=== PATIENT | female | born 1945 | race Caucasian/White ===

== ENCOUNTER → 2023-12-25 09:22 | Outpatient (REF) | payer MEDICARE, OTHER, SELFPAY ==
[2023-12-25 12:55] LABS: Glycohemoglobin (HgbA1c) 6.3 % (4.0-5.6)
[2023-12-25 13:05] LABS: ALT (SGPT) 24 U/L (0-35); AST (SGOT) 25 U/L (14-36); Albumin 4.4 g/dl (3.5-5.0); Alkaline Phosphatase 54 U/L (38-126); Blood Urea Nitrogen 15 mg/dl (7-17); Calcium 9.2 mg/dl (8.4-10.2); Carbon Dioxide 28 mmol/L (22-30); Chloride 99 mmol/L (98-107); Glucose 129 mg/dl (70-99); HDL Cholesterol 58 mg/dl; LDL Cholesterol, Calculated 124 mg/dl; Potassium 4.1 mmol/L (3.5-5.1); Sodium 139 mmol/L (135-145); Total Bilirubin 0.8 mg/dl (0.2-1.3); Total Cholesterol 214 mg/dl (50-199); Triglyceride 160 mg/dl (10-149); Very Low Density Lipoprotein 32 mg/dl (0-30); eGFR > 60.00
[2023-12-25 13:19] LABS: Vitamin D, 25-OH*** 42.8 ng/mL (30-80)
== END ==
LOC: HWLAB 09:22
PROVIDERS: ATTENDING PHYSICIAN Family Medicine
DX: Z86.39 Personal history of other endocrine, nutritional and metabolic disease (principal); R79.89 Other specified abnormal findings of blood chemistry; E78.2 Mixed hyperlipidemia; R73.01 Impaired fasting glucose; Z79.899 Other long term (current) drug therapy
CPT/HCPCS: 36415; 80053; 80061; 82306; 83036

== ENCOUNTER → 2024-12-29 10:24 | Outpatient (REF) | payer MEDICARE, OTHER, SELFPAY ==
[2024-12-29 11:28] LABS: Hematocrit 42.1 % (37.0-47.0); Hemoglobin 13.9 g/dL (12.0-16.0); Mean Corp Hgb Conc. 33.0 g/dL (33.0-37.0); Mean Corpuscular Volume 88.1 fL (81.0-99.0); Nucleated Red Blood Cells % 0 %; Platelet Count 311 10^3/uL (130-400); Red Cell Dist. Width 12.6 % (11.5-14.5)
[2024-12-29 11:56] LABS: ALT (SGPT) 31 U/L (0-35); AST (SGOT) 25 U/L (14-36); Albumin 4.3 g/dl (3.5-5.0); Alkaline Phosphatase 58 U/L (38-126); Blood Urea Nitrogen 16 mg/dl (7-17); Calcium 9.6 mg/dl (8.4-10.2); Carbon Dioxide 32 mmol/L (22-30); Chloride 98 mmol/L (98-107); Glucose 137 mg/dl (70-99); HDL Cholesterol 58 mg/dl; LDL Cholesterol, Calculated 136 mg/dl; Potassium 4.2 mmol/L (3.5-5.1); Sodium 136 mmol/L (135-145); Total Protein 7.2 g/dl (6.3-8.2); Very Low Density Lipoprotein 23 mg/dl (0-30); eGFR > 60.00
[2024-12-29 12:11] LABS: Vitamin D, 25-OH*** 53.8 ng/mL (30-80)
[2024-12-29 12:58] LABS: Glycohemoglobin (HgbA1c) 6.5 % (4.0-5.9)
== END ==
LOC: HWLAB 10:24
PROVIDERS: ATTENDING PHYSICIAN Family Medicine
DX: Z86.39 Personal history of other endocrine, nutritional and metabolic disease (principal); R73.01 Impaired fasting glucose; E78.2 Mixed hyperlipidemia; I10 Essential (primary) hypertension; Z79.899 Other long term (current) drug therapy
CPT/HCPCS: 36415; 80053; 80061; 82306; 83036; 85025